=== PATIENT | female | born 1940 | race Two or more races ===

== ENCOUNTER 2022-09-10 05:00 | Day surgery (SDC) | payer OTHER ==
[~2022-09-10] VITALS: Ht 170.2 cm; Wt 81.6 kg
[~2022-09-10 05:00] MED LIST: ATORVASTATIN CA10 MG PO; D3 + K2 DOTS 11 EACH PO; FOLIC ACID0.8 M1 PO; GLIPIZIDE XL5 MG PO; GLUMETZA500 MG PO; HORIZANT600 MG PO; HUMIRA40 MG/0.2; METHOTREXATE2.5 MG PO; PROLIA60 MG/1 ML SUBCUTANEO
== END 2022-09-10 09:55 | disposition home or self-care (01) ==
LOC: CIR.AMB 05:00
PROVIDERS: ATTEND Surgery Surgery of the Hand
DX: M65.841 Other synovitis and tenosynovitis, right hand (principal); Z20.822 Contact with and (suspected) exposure to COVID-19; I10 Essential (primary) hypertension; E78.5 Hyperlipidemia, unspecified; E11.9 Type 2 diabetes mellitus without complications; E03.9 Hypothyroidism, unspecified